=== PATIENT | female | born 1995 | race Hispanic/Latino ===

== ENCOUNTER → 2024-06-01 10:28 | Outpatient (REF) | payer OTHER, SELFPAY ==
[2024-06-01 18:46] LABS: Rubella Positive
[2024-06-01 20:05] LABS: Hepatitis B Surface Antibody Positive
[2024-06-03 04:10] LABS: Quantiferon Mitogen minus NIL 9.98 IU/mL; Quantiferon NIL 0.02 IU/mL; Quantiferon Plus TB1 minus NIL 0.02 IU/mL (<=0.34); Quantiferon Plus TB2 minus NIL 0.01 IU/mL (<=0.34); Quantiferon TB Gold Plus Negative (Negative)
== END ==
LOC: REG 10:28
PROVIDERS: ATTENDING PHYSICIAN Nurse Practitioner Family
DX: Z23 Encounter for immunization (principal)
CPT/HCPCS: 36415; 86480; 86706; 86735; 86762; 86765; 86787